=== PATIENT | female | born 1955 | race American Indian/Alaskan Native ===

== ENCOUNTER 2017-04-12 21:04 | Emergency (ER) | payer OTHER ==
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
[2017-04-12] MEDS ORDERED: NORCO 5/325 PO ONE (21:28)
[2017-04-12] MEDS ORDERED: FLEXERIL PO ONE (21:28)
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
[2017-04-13 00:10] VITALS: BP 138/79
--- NOTE | 2017-04-13 00:17 | Cat Scan Report ---
FINAL REPORT PROCEDURE: CT LUMBAR SPINE WO CON TECHNIQUE: Computerized axial tomography of the lumbar spine was performed from T12 to the sacrum without contrast material. HISTORY: Possible mild compression deformity T12 vertebral body. COMPARISON: Plain films lumbar spine 04/12/2017 FINDINGS: Only the lower half of the T12 vertebral body was visualized. Upper half was not included on this exam. No fractures or subluxation of the lumbar spine are visualized. Posterior elements are intact. No evidence of spondylolysis or spondylolisthesis. L1-2: No significant abnormality. L2-3: No significant abnormality. L3-4: No significant abnormality. L4-5: No significant abnormality. L5-S1: No significant abnormality. Other: None. IMPRESSION: No abnormalities are seen. The upper half of the T12 vertebral body is not included on this exam. If there is concern for injury to T12 vertebral body consider CT scan of the thoracic spine for further evaluation.
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
== END 2017-04-13 01:05 | disposition home or self-care (01) ==
LOC: ED 21:04
DX: S89.90XA Unspecified injury of unspecified lower leg, initial encounter (principal); M25.561 Pain in right knee; M25.562 Pain in left knee; M54.5 Low back pain; E11.9 Type 2 diabetes mellitus without complications; V89.2XXA Person injured in unspecified motor-vehicle accident, traffic, initial encounter; Y93.89 Activity, other specified; Y99.9 Unspecified external cause status; Y92.410 Unspecified street and highway as the place of occurrence of the external cause
CPT/HCPCS: 72100; 72128; 72131; 73521

== ENCOUNTER 2017-06-21 23:13 | Emergency (ER) | payer BC, OTHER ==
[2017-06-21] MEDS ORDERED: VALIUM IV ONE (23:45)
[2017-06-21] MEDS ORDERED: ZOFRAN IV ONE (23:45)
[2017-06-21] MEDS ORDERED: NACL 0.9% 1000 ML 1,000 ML IV ONE (23:45)
[2017-06-21] MEDS ORDERED: MORPHINE IV ONE (23:45)
--- NOTE | 2017-06-22 00:08 | Emergency Department Report ---
ED Lower Extremity HPI - General Chief Complaint: Extremity Problem,Nontraumatic Stated Complaint: LEG CRAMPING Time Seen by Provider: 06/21/17 23:39 Source: patient Mode of arrival: Ambulatory Limitations: No Limitations - History of Present Illness Initial Comments: 61 yo female with a past medical history of borderline diabetes currently previously on metformin now not on any medication currently presents to the hospital complains of right calf pain and cramping. Patient was ambulating from the store at the time if other spasm and pain to her right calf area. Patient has had similar spasms in the past but able to massage tomorrow. This time spasms more severe and not relieved with self massage. Pain is affected in intensity, intermittent in, and feels like her muscle is knotting up. With palpation. No alleviating factors. Patient states recent travel to from [place] via airplane May 31. She denies chest pain, shortness of breath, trauma, or recent exercising. - Related Data Previous Rx's Medication Instructions Recorded Last Taken Type Penicillin Vk [Veetids TAB] 500 mg PO QID #40 tablet 11/01/15 Unknown Rx traMADol [Ultram 50 MG tab] 50 mg PO Q6HR PRN #20 tablet 11/01/15 Unknown Rx Cyclobenzaprine [Flexeril] 10 mg PO TID PRN #15 tablet 04/13/17 Unknown Rx Ibuprofen [Motrin] 600 mg PO Q8H PRN #15 tablet 04/13/17 Unknown Rx Diazepam Tab [Valium] 5 mg PO TID PRN #14 tablet 06/22/17 Unknown Rx HYDROcodone/APAP 5-325 [[place] 1 each PO Q6HR PRN #20 tablet 06/22/17 Unknown Rx 5/325] Ibuprofen [Motrin] 600 mg PO Q8H PRN #30 tablet 06/22/17 Unknown Rx Allergies Allergy/AdvReac Type Severity Reaction Status Date / Time No Known Allergies Allergy Verified 06/21/17 23:22 ED Review of Systems ROS: Stated complaint: LEG CRAMPING Other details as noted in HPI Comment: All other systems reviewed and negative Other: Constitutional: No fevers chills Eyes: No eye pain visual changes ENT: No ear pain or throat pain Neck: Denies pain Respiratory: Denies cough wheezing shortness of breath Cardiovascular: Denies chest pain, palpitations, syncope GI: Denies abdominal pain, nausea, vomiting, diarrhea : Denies dysuria Musculoskeletal: as per hpi Skin: Denies rash, lesions, erythema Neurologic: Denies headache, numbness, weakness Psychiatric: Denies suicidal ideation, hallucinations ED Past Medical Hx - Past Medical History Hx Diabetes: Yes (diet controlled) - Surgical History Additional Surgical History: hyst. - Social History Smoking Status: Never Smoker Substance Use Type: None - Medications Home Medications: Home Medications Medication Instructions Recorded Confirmed Last Taken Type Penicillin Vk [Veetids TAB] 500 mg PO QID #40 tablet 11/01/15 Unknown Rx traMADol [Ultram 50 MG tab] 50 mg PO Q6HR PRN #20 tablet 11/01/15 Unknown Rx Cyclobenzaprine [Flexeril] 10 mg PO TID PRN #15 tablet 04/13/17 Unknown Rx Ibuprofen [Motrin] 600 mg PO Q8H PRN #15 tablet 04/13/17 Unknown Rx Diazepam Tab [Valium] 5 mg PO TID PRN #14 tablet 06/22/17 Unknown Rx HYDROcodone/APAP 5-325 [[place] 1 each PO Q6HR PRN #20 tablet 06/22/17 Unknown Rx 5/325] Ibuprofen [Motrin] 600 mg PO Q8H PRN #30 tablet 06/22/17 Unknown Rx ED Physical Exam - General Limitations: No Limitations - Other Other exam information: General: No limitations, patient is alert in no acute distress Head exam: Atraumatic, normocephalic Eyes exam: Normal appearance ENT: Moist mucous membrane, normal oropharynx Neck exam: Normal inspection, full range of motion, no meningismus nontender Respiratory exam: Clear to auscultation bilateral, no wheezes, rales, crackles Cardiovascular: Normal rate and rhythm, normal heart sounds Abdomen: Soft, nondistended, and nontender, with normal bowel sounds, no rebound, or guarding Extremity: Full range of motion normal inspection no deformity, no edema, no leg asymmetry, 2+ DP pulses bilaterally. Positive tenderness to palpation of distal calf extending to the mid and proximal calf. Positive muscle spasm Back: Normal Inspection, full range of motion, no tenderness Neurologic: Alert, oriented x3, cranial nerves intact, no motor or sensory deficit Psychiatric: normal affect, normal mood Skin: Warm, dry, intact ED Course Vital Signs 06/21/17 06/21/17 06/21/17 23:22 23:40 23:45 Temperature 98 F Pulse Rate 74 Respiratory 16 20 20 Rate Blood Pressure 142/81 Blood Pressure [Left] O2 Sat by Pulse 100 100 Oximetry 06/22/17 06/22/17 00:10 00:20 Temperature 98.7 F Pulse Rate 86 Respiratory 20 20 Rate Blood Pressure Blood Pressure 150/74 [Left] O2 Sat by Pulse 100 Oximetry - Reevaluation(s) Reevaluation #1: 06/22/17 00:23 Patient treated with Valium, morphine, 1 L normal saline and toradol Reevaluation #2: 06/22/17 01:49 Patient feeling better with ED treatment. ED Lower Extremity MDM - Lab Data Result diagrams: 06/22/17 00:14 06/22/17 00:14 Lab Results 06/22/17 06/22/17 06/22/17 Range/Units 00:14 00:14 00:14 WBC 14.8 H (4.5-11.0) K/mm3 RBC 4.88 (3.65-5.03) M/mm3 Hgb 12.8 (10.1-14.3) gm/dl Hct 39.8 (30.3-42.9) % MCV 82 (79-97) fl MCH 26 L (28-32) pg MCHC 32 (30-34) % RDW 14.4 (13.2-15.2) % Plt Count 618 H (140-440) K/mm3 Lymph % (Auto) 27.8 (13.4-35.0) % Mayes % (Auto) 5.9 (0.0-7.3) % Eos % (Auto) 2.1 (0.0-4.3) % Baso % (Auto) 0.5 (0.0-1.8) % Lymph # 4.1 (1.2-5.4) K/mm3 Mayes # 0.9 H (0.0-0.8) K/mm3 Eos # 0.3 (0.0-0.4) K/mm3 Baso # 0.1 (0.0-0.1) K/mm3 Seg Neutrophils % 63.7 (40.0-70.0) % Seg Neutrophils # 9.4 H (1.8-7.7) K/mm3 D-Dimer (0-234) ng/mlDDU Sodium 142 (137-145) mmol/L Potassium 4.0 (3.6-5.0) mmol/L Chloride 98.7 (98-107) mmol/L Carbon Dioxide 24 (22-30) mmol/L Anion Gap 23 mmol/L BUN 24 H (7-17) mg/dL Creatinine 1.1 (0.7-1.2) mg/dL Estimated GFR > 60 ml/min BUN/Creatinine Ratio 21.81 % Glucose 156 H (65-100) mg/dL Calcium 10.1 (8.4-10.2) mg/dL Magnesium 2.10 (1.7-2.3) mg/dL Total Creatine Kinase 170 H (30-135) units/L /06/30 Range/Units 00:14 WBC (4.5-11.0) K/mm3 RBC (3.65-5.03) M/mm3 Hgb (10.1-14.3) gm/dl Hct (30.3-42.9) % MCV (79-97) fl MCH (28-32) pg MCHC (30-34) % RDW (13.2-15.2) % Plt Count (140-440) K/mm3 Lymph % (Auto) (13.4-35.0) % Mayes % (Auto) (0.0-7.3) % Eos % (Auto) (0.0-4.3) % Baso % (Auto) (0.0-1.8) % Lymph # (1.2-5.4) K/mm3 Mayes # (0.0-0.8) K/mm3 Eos # (0.0-0.4) K/mm3 Baso # (0.0-0.1) K/mm3 Seg Neutrophils % (40.0-70.0) % Seg Neutrophils # (1.8-7.7) K/mm3 D-Dimer < 135.00 (0-234) ng/mlDDU Sodium (137-145) mmol/L Potassium (3.6-5.0) mmol/L Chloride (98-107) mmol/L Carbon Dioxide (22-30) mmol/L Anion Gap mmol/L BUN (7-17) mg/dL Creatinine (0.7-1.2) mg/dL Estimated GFR ml/min BUN/Creatinine Ratio % Glucose (65-100) mg/dL Calcium (8.4-10.2) mg/dL Magnesium (1.7-2.3) mg/dL Total Creatine Kinase (30-135) units/L - Medical Decision Making Patient has had symptoms of muscle cramps in the past. Labs reveal elevated white count but no signs of acute infection. She also has increased platelet count but no clinical signs of thrombocytosis. Patient will be provided a copy of her labs and encouraged to follow up with the primary care doctor field service consultant for further evaluation. Patient states she had he has Flexeril so value of an additional pain medication will be prescribed. - Differential Diagnosis muscle spasm, electrolyte abnormality, rhabdomyolysis, DVT Critical Care Time: No Critical care attestation.: If time is entered above; I have spent that time in minutes in the direct care of this critically ill patient, excluding procedure time. ED Disposition Clinical Impression: Muscle cramp, Thrombocytosis Disposition: TO HOME OR SELFCARE Is pt being admited?: No Does the pt Need Aspirin: No Condition: Stable Instructions: Muscle Cramp (ED) Additional Instructions: Your platelet count is elevated today. Please follow-up with your primary care doctor and/or field service consultant for further monitoring and evaluation. Take the copy of the laboratory provided to the doctor for follow-up Prescriptions: Diazepam Tab [Valium] 5 mg PO TID PRN #14 tablet PRN Reason: Muscle Spasm HYDROcodone/APAP 5-325 [[place] 5/325] 1 each PO Q6HR PRN #20 tablet PRN Reason: Pain Ibuprofen [Motrin] 600 mg PO Q8H PRN #30 tablet PRN Reason: Pain Referrals: BRENDA HERNANDEZ MD [Staff Physician] - 3-5 Days (Primary care doctor) HANK DUGAN MD [Staff Physician] - 3-5 Days (field service consultant) Time of Disposition: 02:02
[2017-06-22] MEDS ORDERED: TORADOL IV ONE (00:24)
[2017-06-22 00:41] LABS: Basophils % (Auto) 0.5 % (0.0-1.8); Eosinophils % (Auto) 2.1 % (0.0-4.3); Hematocrit 39.8 % (30.3-42.9); Hemoglobin 12.8 gm/dl (10.1-14.3); Mean Corpuscular HGB Conc 32 % (30-34); Mean Corpuscular Hemoglobin 26 pg (28-32); Mean Corpuscular Volume 82 fl (79-97); Platelet Count 618 K/mm3 (140-440); Red Blood Count 4.88 M/mm3 (3.65-5.03); Red Cell Distribution Width 14.4 % (13.2-15.2); White Blood Count 14.8 K/mm3 (4.5-11.0)
[2017-06-22 00:48] LABS: Anion Gap 23 mmol/L; BUN/Creatinine Ratio 21.81; Blood Urea Nitrogen 24 mg/dL (7-17); Calcium 10.1 mg/dL (8.4-10.2); Carbon Dioxide 24 mmol/L (22-30); Chloride 98.7 mmol/L (98-107); Glucose 156 mg/dL (65-100); Sodium 142 mmol/L (137-145)
[2017-06-22 00:51] LABS: Magnesium 2.1 mg/dL (1.7-2.3)
[2017-06-22 02:28] VITALS: BP 128/60
== END 2017-06-22 02:25 | disposition home or self-care (01) ==
LOC: ED 23:13
DX: R25.2 Cramp and spasm (principal); D47.3 Essential (hemorrhagic) thrombocythemia; E11.9 Type 2 diabetes mellitus without complications
CPT/HCPCS: 36415; 80048; 82550; 82962; 83735; 85025; 85379; 96361; 96374; 96375; 99283; J1885; J2270; J2405; J3360; J7030

== ENCOUNTER 2017-07-19 08:08 | Outpatient (CLI) | payer BC ==
--- NOTE | 2017-07-19 10:03 | Mammography Report ---
Bilateral mammogram: No previous studies are available. CAD study utilized. Findings: Predominance interstitial bilaterally. Circumscribed density upper left breast no microcalcification. Benign axillary nodes. Impression: Circumscribed density upper left breast. Comparison with previous studies is recommended. If previous studies are not available spot mag and sonographic examination advised. BI-RADS CATEGORY: 0 = Needs additional imaging evaluation ACR BI-RADS MAMMOGRAPHIC CODES: 0 = Needs additional imaging evaluation; 1 = Negative; 2 = Benign; 3 = Probably benign; 4 = Suspicious; 5 = Malignant; 6 = Known biopsy-proven malignancy COMMENT: 1. Dense breast tissue, i.e., adenosis, fibrocystic changes, etc., may obscure an underlying neoplasm. 2. Approximately 10% of cancers are not detected with mammography. 3. A negative mammography report should not delay biopsy if a clinically suspicious mass is present. COMMENT: Patient follow-up letters are generated in [employer].
== END 2017-07-19 08:09 | disposition home or self-care (01) ==
LOC: MAMMO 08:08
PROVIDERS: ATTEND Obstetrics & Gynecology
DX: Z12.31 Encounter for screening mammogram for malignant neoplasm of breast (principal)
CPT/HCPCS: 77067; G0202